=== PATIENT | male | born 1960 | race Caucasian/White ===

== ENCOUNTER → 2019-09-11 12:51 | Outpatient (CLI) | payer MEDICAID, SELFPAY ==
--- NOTE | 2019-09-11 12:59 | CT_ITS ---
STUDY: CT ABDOMEN AND PELVIS WITH CONTRAST REASON FOR EXAM: Male, 59 years old. Lung cancer with mets, chemotherapy. Prior lung biopsy, appendectomy. RADIATION DOSAGE (If Supplied By Facility): CTDIvol = ( 10.31 ) mGy, DLP = ( 910.64 ) mGycm TECHNIQUE: Transaxial images were obtained from the dome of the diaphragm to the symphysis pubis with oral contrast. Oral and amp; IV Readi-CAT and amp; 100mL Isovue-300 was administered. Sagittal and coronal images were reconstructed. Individualized dose optimization techniques were used for this CT. COMPARISON: None. FINDINGS: There are diffuse coarse interstitial markings of the lung bases. There is an irregularly margined density of the right lung base overall measuring approximately 5.9 x 2.4 x 3.1 cm. The visualized portions of the heart are within normal limits. Normal liver. Normal gallbladder and extrahepatic biliary system. Normal spleen. Normal pancreas. Normal bilateral adrenal glands. Normal right kidney. Normal left kidney. Normal visualized stomach. Normal small intestine. Normal colon. There is non-visualization of the appendix. There are calcified plaques of the abdominal aorta and common iliac arteries. Normal inferior vena cava. Normal retroperitoneum. Normal urinary bladder. The prostate is enlarged and heterogeneous in density. There is a small umbilical hernia containing fat. Normal osseous structures. CT/Abdomen/Pelvis WITH Contrast IMPRESSION: There are diffuse coarse interstitial markings of the visualized lung bases. There is an irregularly margined density of the right lower lobe measuring overall approximately 5.9 x 2.4 x 3.1 cm. The majority of this appears to be fibrotic in nature. Underlying malignancy cannot be excluded. Comparison with any prior CT studies of the chest is recommended. Calcified plaques of the abdominal aorta and common iliac arteries. Enlarged prostate. Small fat-containing umbilical hernia. Electronically Signed: Anjum Strickland MD at 18:27 EST , Service support ,
--- NOTE | 2019-09-11 12:59 | CT_ITS ---
STUDY: CT CHEST WITH CONTRAST REASON FOR EXAM: Male, 59 years old. Lung cancer with mets, chemotherapy. Prior lung biopsy, appendectomy. RADIATION DOSAGE (If Supplied By Facility): CTDIvol = ( 10.31 ) mGy, DLP = ( 910.64 ) mGycm TECHNIQUE: Transaxial imaging was performed following intravenous administration of Oral and amp; IV Readi-CAT and amp; 100mL Isovue-300. Individualized dose optimization techniques were used for this CT. COMPARISON: None. FINDINGS: There are emphysematous changes of the lungs most severely affecting the upper lobes. There is pleural thickening and consolidation of the posterior right upper lobe involving an area approximately 8.5 x 4.0 x 7.7 cm. Air bronchograms are noted throughout the majority of this density. There are additional pulmonic densities of the superior segments of the left and right lower lobes and right lower lobe. There is airspace disease of the right middle lobe. There is no pleural effusion. The heart size is within normal limits. Coronary arterial calcifications are noted. There is no pericardial effusion. There is a conglomerate mass of left mediastinal nodes of the left paratracheal area measuring approximately 3.2 x 2.5 cm. There is a subcarinal node measuring 2.2 x 1.7 cm. There is right hilar mass/adenopathy measuring 4.0 x 2.8 x 2.6 cm. Normal enhanced pulmonary arteries. There are calcified plaques of the thoracic aorta. There is increased thoracic kyphosis. There is diffuse endplate spondylosis of the thoracic spine. No lytic or blastic osseous changes are evident. There is no demonstrated abnormality of the visualized upper abdomen. CT/Chest WITH Contrast IMPRESSION: 1. Emphysematous changes of the lungs most severely affecting the upper lobes. 2. Pleural thickening and consolidation of the posterior right upper lobe involving area approximately 8.5 x 4.0 x 7.7 cm. Air bronchograms are noted throughout the majority of this density. 3. There are additional low densities of the superior segments of the left and right lower lobes and right lower lobe. 4. There is airspace disease of the right middle lobe. 5. Conglomerate mass of left mediastinal nodes, subcarinal adenopathy, and right hilar mass/adenopathy. 6. Comparison with previous studies is recommended. No previous studies are available for comparison at this time. Electronically Signed: Anjum Strickland MD at 21:55 EST , Service support ,
== END ==
DX: C34.91 Malignant neoplasm of unspecified part of right bronchus or lung (principal)
CPT/HCPCS: 71260; 74177; Q9967